=== PATIENT | male | born 2000 | race Caucasian/White ===

== ENCOUNTER 2022-05-12 19:23 | Emergency (ER) | payer OTHER, SELFPAY ==
[2022-05-12 19:24] VITALS: BP 137/86; PULSE 95; RESP 16; TEMP 36.6; O2SAT 98
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
[2022-05-12 23:04] VITALS: PULSE 78; RESP 18; O2SAT 96
== END 2022-05-12 23:05 | disposition home or self-care (01) ==
PROVIDERS: Emergency Provider Emergency Medicine; Visit Provider Emergency Medicine
DX: Z04.1 Encounter for examination and observation following transport accident (principal); R07.9 Chest pain, unspecified
CPT/HCPCS: 71046; 99282